=== PATIENT | female | born 1965 | race Caucasian/White ===

== ENCOUNTER 2019-04-08 17:35 | Emergency (ER) | payer OTHER ==
[~2019-04-08] VITALS: Ht 167.6 cm; Wt 54.4 kg
[2019-04-08] MEDS ORDERED: TRAZODONE HCL50 MG PO (18:06)
[2019-04-08] MEDS ORDERED: VYVANSE50 MG PO (18:06)
[2019-04-08] MEDS ORDERED: PROZAC20 MG PO (18:07)
[2019-04-08 19:43] VITALS: BP 121/65
== END 2019-04-08 19:50 | disposition home or self-care (01) ==
LOC: ER 17:35
DX: S01.01XA Laceration without foreign body of scalp, initial encounter (principal); Z87.891 Personal history of nicotine dependence; Z88.5 Allergy status to narcotic agent; Z91.041 Radiographic dye allergy status; Z88.0 Allergy status to penicillin; Z88.8 Allergy status to other drugs, medicaments and biological substances; W20.8XXA Other cause of strike by thrown, projected or falling object, initial encounter; Y92.89 Other specified places as the place of occurrence of the external cause; Y93.89 Activity, other specified; Y99.8 Other external cause status